=== PATIENT | male | born 1970 | race Caucasian/White ===

== ENCOUNTER 2017-01-10 15:07 | Emergency (ER) | payer OTHER ==
[~2017-01-10] VITALS: Ht 170.2 cm; Wt 80.7 kg
[2017-01-10 15:15] VITALS: BP 139/87
== END 2017-01-10 15:51 | disposition home or self-care (01) ==
LOC: ED 15:07
DX: L03.314 Cellulitis of groin (principal); L40.9 Psoriasis, unspecified; Z79.899 Other long term (current) drug therapy

== ENCOUNTER 2017-11-03 17:16 | Emergency (ER) | payer OTHER ==
[~2017-11-03] VITALS: Ht 170.2 cm; Wt 84.8 kg
[2017-11-03 21:00] VITALS: BP 128/73
== END 2017-11-03 21:00 | disposition home or self-care (01) ==
LOC: ED 17:16
DX: L02.414 Cutaneous abscess of left upper limb (principal)
CPT/HCPCS: J2001

== ENCOUNTER 2017-11-05 14:05 | Emergency (ER) | payer OTHER ==
[~2017-11-05] VITALS: Ht 170.2 cm; Wt 77.1 kg
[2017-11-05 14:22] VITALS: Ht 170.2 cm; Wt 77.1 kg
[2017-11-05 15:10] VITALS: BP 139/78
== END 2017-11-05 15:10 | disposition home or self-care (01) ==
LOC: ED 14:05
DX: Z48.01 Encounter for change or removal of surgical wound dressing (principal)